=== PATIENT | female | born 1945 | race African-American/Black ===

== ENCOUNTER 2016-11-28 12:38 | Inpatient (IN) | payer OTHER ==
--- NOTE | 2016-11-28 13:05 | PDOC ---
History of Present Illness - General History Source: Patient Exam Limitations: No Limitations - History of Present Illness Initial Comments: 11/28/16 14:10 The patient is a 70-year-old female, with a significant past medical history of diabetes, HTN, hypercholesterolemia, prior CVA, who presents to the ED with right hip/knee pain accompanied by generalized weakness. Pt states that she was scheduled for hip surgery but it was canceled due to poor kidney function. She reports that she got up to use the bathroom this morning at 3:00 AM and was experiencing difficulty ambulating due to weakness and pain in both her right knee and hip. Pt was able to use the bathroom but had to crawl to a phone to call a friend who [place] to come help her. She was able to help the patient onto her couch. Later on pt had to use the bathroom again and had to crawl. Upon arrival to the ED, pt denies any fever, chills, shortness of breath, or chest pain. She states that she is equally weak on both sides and normally ambulates with a walker. She reports having a CT scan of her chest yesterday and her PCP noted that a lump in one of her breasts. She was advised to visit an oncologist to perform a biopsy. PCP: Dr. Marlen Pitts ([facility]) <Jenny Ortiz - Last Filed: 11/28/16 14:10> <Latasha Metcalf - Last Filed: 11/28/16 17:04> - General Stated Complaint: WEAKNESS Time Seen by Provider: 11/28/16 12:41 Past History <Jenny Ortiz - Last Filed: 11/28/16 14:10> - Past Medical History Anemia: No Asthma: No Cancer: No Cardiac Disorders: Yes CVA: Yes (January 2016) COPD: No CHF: Yes Dementia: No Diabetes: Yes GI Disorders: No Disorders: No HTN: Yes Hypercholesterolemia: Yes Liver Disease: No Seizures: No Thyroid Disease: No - Surgical History Abdominal Surgery: Yes (bariatric sx long time ago) Appendectomy: No Cardiac Surgery: No Cholecystectomy: No Lung Surgery: No Neurologic Surgery: No Orthopedic Surgery: No - Immunization History Td Vaccination: Yes Immunization Up to Date: Yes - Psycho/Social/Smoking Cessation Hx Anxiety: No Suicidal Ideation: No Smoking Status: No Smoking History: Former smoker Have you smoked in the past 12 months: No Number of Cigarettes Smoked Daily: 0 If you are a former smoker, when did you quit?: long time ago Hx Alcohol Use: Yes (socially) Drug/Substance Use Hx: No Substance Use Type: Alcohol <Latasha Metcalf - Last Filed: 11/28/16 17:04> - Past Medical History Allergies/Adverse Reactions: Allergies Allergy/AdvReac Type Severity Reaction Status Date / Time No Known Allergies Allergy Verified 10/30/16 15:50 Home Medications: Ambulatory Orders Unobtainable [Unobtainable] 11/28/16 Review of Systems - Review of Systems Able to Perform ROS?: Yes Comments:: 11/28/16 14:10 GENERAL/CONSTITUTIONAL: No fever or chills. (+)generalized weakness HEAD, EYES, EARS, NOSE AND THROAT: No change in vision. No ear pain or discharge. No sore throat. CARDIOVASCULAR: No chest pain or shortness of breath. RESPIRATORY: No cough, wheezing, or hemoptysis. GASTROINTESTINAL: No nausea, vomiting, diarrhea or constipation. GENITOURINARY: No dysuria, frequency, or change in urination. MUSCULOSKELETAL: No joint swelling or pain. No neck or back pain. (+)right hip pain SKIN: No rash NEUROLOGIC: No headache, vertigo, loss of consciousness, or change in strength/ sensation. ENDOCRINE: No increased thirst. No abnormal weight change. HEMATOLOGIC/LYMPHATIC: No anemia, easy bleeding, or history of blood clots. ALLERGIC/IMMUNOLOGIC: No hives or skin allergy. <Jenny Ortiz - Last Filed: 11/28/16 14:10> *Physical Exam - Vital Signs Last Vital Signs Temp Pulse Resp BP Pulse Ox 98.5 F 68 22 124/58 97 11/28/16 13:10 11/28/16 13:10 11/28/16 13:10 11/28/16 13:10 11/28/16 13:10 - Physical Exam Comments: 11/28/16 14:11 GENERAL: Awake, alert, and fully oriented, in no acute distress HEAD: No signs of trauma EYES: PERRLA, EOMI, sclera anicteric, conjunctiva clear ENT: Auricles normal inspection, hearing grossly normal, nares patent, oropharynx clear without exudates. Moist mucosa. NECK: Normal ROM, supple, no lymphadenopathy, JVD, or masses LUNGS: Breath sounds equal, clear to auscultation bilaterally. No wheezes, and no crackles HEART: Regular rate and rhythm, normal S1 and S2, no murmurs, rubs or gallops ABDOMEN: Soft, nontender, normoactive bowel sounds. No guarding, no rebound. No masses. Obese. EXTREMITIES: (+)Right hip tenderness. Left hip is nontender. NEUROLOGICAL: Normal speech. SKIN: Warm, Dry, normal turgor, no rashes or lesions noted <Jenny Ortiz - Last Filed: 11/28/16 14:10> Heart Score/ECG Review #1 ECG reviewed & interpreted by me at: 15:02 General ECG Interpretation: Sinus Rhythm, Normal Rate (71), Normal Intervals, No acute ischemic changes <Latasha Metcalf - Last Filed: 11/28/16 17:04> ED Treatment Course - LABORATORY CBC & Chemistry Diagram: 11/28/16 14:38 11/28/16 14:38 <Latasha Metcalf - Last Filed: 11/28/16 17:04> Medical Decision Making - Medical Decision Making 11/28/16 13:30 Dr. Marlen Pitts was paged and notified via phone service. <Jenny Ortiz - Last Filed: 11/28/16 14:10> - Medical Decision Making 11/28/16 13:04 71 yo f h/o HTN< HLD, DM, prior CVA, lung mass and ckd, also with ho arthritis, scheduled for hip surgery here wtih generalized weakness and worsening hip pain. pt unable to walk due to pain. states last pm was crawling to bathroom because unable to walk due to both pain and weaknesss. hip pain is bilateral, but worse on the right. no new change to speech. no falls. crawled to bathroom then back to living room. was able to call a friend who helped her onto the cough. pt normally walking with walker due to hip pain. no cp no sob. no f/c no urinary complaints. was recently admitted to another hospital and told she had ckd. on exam awake, alert, head atraumatic, facies symmetric. lungs cTAB. no wheeze. heart RRR no mr/g/. abd soft NT nD ext WWP right hip TTP, left hip NT . nuero awake and oriented. moves all extremities. speech clear. differential: worsening pain, pathological fx, electorlyt abnormality, anemia, pt will likley require admission as unable to ambulate, unsafe discharge to home alone. ct head r/o cva. 11/28/16 13:45 <Latasha Metcalf - Last Filed: 11/28/16 17:04> *DC/Admit/Observation/Transfer - Attestations Scribe Attestion: 11/28/16 14:12 Documentation prepared by Jenny Ortiz, acting as back office medical assistant for Latasha Metcalf MD. <Jenny Ortiz - Last Filed: 11/28/16 14:10> - Discharge Dispostion Admit: Yes <Latasha Metcalf - Last Filed: 11/28/16 17:04> Diagnosis at time of Disposition: Arthralgia of hip, Unable to walk
[2016-11-28 14:45] LABS: BASOPHIL 1.4 % (0-2.0); EOSINOPHIL 1.6 % (0-4.5); MCH 27.7 pg (25.7-33.7); MCHC 32.5 g/dl (32.0-36.0); MEAN CELL VOLUME 85.1 fl (80-96); MEAN PLT VOLUME 6.6 fl (7.5-11.1); NEUTROPHILS 70.6 % (42.8-82.8); PLATELET COUNT 284 K/MM3 (134-434); RDW 14.7 % (11.6-15.6); WHITE BLOOD COUNT 7.9 K/mm3 (4.0-10.0)
[2016-11-28 15:21] LABS: ALBUMIN 3.7 g/dl (3.4-5.0); BILIRUBIN,TOTAL 0.6 mg/dL (0.2-1.0); CALCIUM 10.3 mg/dL (8.5-10.1); COCKROFT - GAULT 44.863; CREATININE 1.4 mg/dL (0.55-1.02); TOT PROT 7.2 g/dl (6.4-8.2)
[2016-11-28] MEDS ORDERED: oxyCODONE HCL 5 MG TABLET PO PRN (17:47)
--- NOTE | 2016-11-28 18:10 | HP ---
CHIEF COMPLAINT: PCP: HISTORY OF PRESENT ILLNESS: 71 yo F with significant PMHx of CVA, HTN, HLD, and NIDDM presents s/p fall at home. She lives at home alone. She normally ambulates with walker. She was at home trying to get out of bed to go to bathroom when she grabbed her walker and did not have enough strength to hold herself up. She subsequently fell to floor with no head trauma or loss of consciousness. She then crawled to bathroom and called a neighbor for help. Neighbor called 911 and she was brought to ER. She is complaining of right hip pain,which she describes as 10/10 constant non- radiating pain made worse with movement or palpation not alleviated by anything. Dr. Kramer was supposed to replace hip but found to have KRISTEN on pre-op labs. that why she went to hospital.Denies Fever, chills, or recent illness. SHe was discharge about 2 weeks ago from [facility] for KRISTEN treated with IV hydration. She is being worked up as outpatient for lung nodule and recently referred for chest CT which reveled lung mass suspicious for malignancy and refereed to oncology. ER course was notable for: (1)XRAY hip (-) for fracture. (2)CT head shows no acute bleed. (3)EKG - NSR no st, or t wave abnormalities Recent Travel: Denies PAST MEDICAL HISTORY: PAST SURGICAL HISTORY: Social History: Smoking: Alcohol: Drugs: Family History: Allergies No Known Allergies Allergy (Verified 10/30/16 15:50) HOME MEDICATIONS: Home Medications Medication Instructions Recorded Unobtainable [Unobtainable] 11/28/16 REVIEW OF SYSTEMS CONSTITUTIONAL: Absent: fever, chills, diaphoresis, generalized weakness, malaise, loss of appetite, weight change HEENT: Absent: rhinorrhea, nasal congestion, throat pain, throat swelling, difficulty swallowing, mouth swelling, ear pain, eye pain, visual changes CARDIOVASCULAR: Absent: chest pain, syncope, palpitations, irregular heart rate, lightheadedness , peripheral edema RESPIRATORY: Absent: cough, shortness of breath, dyspnea with exertion, orthopnea, wheezing, stridor, hemoptysis GASTROINTESTINAL: Absent: abdominal pain, abdominal distension, nausea, vomiting, diarrhea, constipation, melena, hematochezia GENITOURINARY: Absent: dysuria, frequency, urgency, hesitancy, hematuria, flank pain, genital pain MUSCULOSKELETAL: (+)joint swelling, back pain, Absent: myalgia, arthralgia, neck pain SKIN: Absent: rash, itching, pallor HEMATOLOGIC/IMMUNOLOGIC: Absent: easy bleeding, easy bruising, lymphadenopathy, frequent infections ENDOCRINE: Absent: unexplained weight gain, unexplained weight loss, heat intolerance, cold intolerance NEUROLOGIC: (+)unsteady gait Absent: headache, focal weakness or paresthesias, dizziness, , seizure, mental status changes, bladder or bowel incontinence PSYCHIATRIC: Absent: anxiety, depression, suicidal or homicidal ideation, hallucinations. PHYSICAL EXAMINATION Vital Signs - 24 hr 11/28/16 13:10 Temperature 98.5 F Pulse Rate 68 Respiratory 22 Rate Blood Pressure 124/58 O2 Sat by Pulse 97 Oximetry (%) GENERAL: AAO x3 , NAD HEAD: NC/AT EYES: PERRLA, EOMI, sclera anicteric, conjunctiva clear. No lid lag. EARS, NOSE, THROAT: Moist mucous membranes. NECK: supple without lymphadenopathy, JVD, or masses. LUNGS: CTAB, No wheezes, and no crackles. No accessory muscle use. HEART: RRR, NO M/G/R ABDOMEN: Soft, NT,ND,BS(+) no guarding, no rebound, no masses. No organomegally MUSCULOSKELETAL: 5/5 strength bilat.upper ext. , tenderness to palpation of right hip. 4/5 strength LLE , 3/5 strength RLE No bony deformities or tenderness. No CVA tenderness. UPPER EXTREMITIES: 2+ pulses, warm, well-perfused. No cyanosis. No clubbing. No peripheral edema. LOWER EXTREMITIES: 2+ pulses, warm, well-perfused. No calf tenderness.1+ pitting edema of bilat LE to level of shins. NEUROLOGICAL: Cranial nerves II-XII intact. Normal speech.gait not observed. 2 + reflexes throughout. PSYCHIATRIC: Cooperative. Good eye contact. Appropriate mood and affect. SKIN: Warm, dry, normal turgor, no rashes or lesions noted, normal capillary refill. Laboratory Results - last 24 hr 11/28/16 11/28/16 14:38 14:38 WBC 7.9 RBC 3.91 Hgb 10.8 Hct 33.3 MCV 85.1 MCHC 32.5 RDW 14.7 Plt Count 284 MPV 6.6 L D Neutrophils % 70.6 D Lymphocytes % 16.9 D Monocytes % 9.5 Eosinophils % 1.6 Basophils % 1.4 Sodium 143 Potassium 4.2 Chloride 108 H Carbon Dioxide 27 Anion Gap 8 BUN 18 D Creatinine 1.4 H Creat Clearance w eGFR 37.07 Random Glucose 110 H D Calcium 10.3 H Total Bilirubin 0.6 AST 23 D ALT 14 Alkaline Phosphatase 158 H D Creatine Kinase 306 H D Creatine Kinase Index 0.7 CK-MB (CK-2) 2.261 Total Protein 7.2 Albumin 3.7 ASSESSMENT/PLAN: 71 yo F with significant PMHx of CVA, HTN, HLD, and NIDDM presents s/p fall at home will be admitted to for inability to ambulate. Problem List - Problem (1) Hip pain Assessment/Plan: * Xray revealed no acute fracture * Pain management * PT eval. (2) HLD (hyperlipidemia) Assessment/Plan: * continue statin (3) Hypertension Assessment/Plan: * Amlodipine Besylate [Norvasc -] 5 mg PO DAILY * Carvedilol 25 mg PO BID (4) DM type 2 (diabetes mellitus, type 2) Assessment/Plan: * ADA diet * ISS ACHS * BGM ACHS (5) DVT prophylaxis Assessment/Plan: * Heparin SQ Visit type - Emergency Visit Emergency Visit: Yes ED Registration Date: 11/28/16 Care time: The patient presented to the Emergency Department on the above date and was hospitalized for further evaluation of their emergent condition. - New Patient This patient is new to me today: No - Critical Care Critical Care patient: No
[2016-11-28] MEDS: SODIUM CHLORIDE 1,000 ML IV SCH (18:43)
[2016-11-28 18:47] LABS: URINE APPEARANCE SLCLOUDY; URINE BILIRUBIN NEGATIVE (NEGATIVE); URINE BLOOD NEGATIVE (NEGATIVE); URINE COLOR LTYELLOW; URINE GLUCOSE (UA) NEGATIVE (NEGATIVE); URINE KETONE NEGATIVE (NEGATIVE); URINE LEUK ESTERASE NEGATIVE (NEGATIVE); URINE NITRITE NEGATIVE (NEGATIVE); URINE UROBILINOGEN NEGATIVE E.U./dl (0.2-1.0)
--- NOTE | 2016-11-28 18:51 | PN ---
Teaching Attending Note Name of Resident: Berlin Jordan ATTENDING PHYSICIAN STATEMENT I saw and evaluated the patient. I reviewed the resident's note and discussed the case with the resident. I agree with the resident's findings and plan as documented. SUBJECTIVE: Patient is c/o having difficulty to stand on her feet , unable to ambulate. Unable to bear weight. OBJECTIVE: Vital Signs Temperature 98.5 F 11/28/16 13:10 Pulse Rate 68 11/28/16 13:10 Respiratory Rate 22 11/28/16 13:10 Blood Pressure 124/58 11/28/16 13:10 O2 Sat by Pulse Oximetry (%) 97 11/28/16 13:10 CBCD WBC 7.9 K/mm3 (4.0-10.0) 11/28/16 14:38 RBC 3.91 M/mm3 (3.60-5.2) 11/28/16 14:38 Hgb 10.8 GM/dL (10.7-15.3) 11/28/16 14:38 Hct 33.3 % (32.4-45.2) 11/28/16 14:38 MCV 85.1 fl (80-96) 11/28/16 14:38 MCHC 32.5 g/dl (32.0-36.0) 11/28/16 14:38 RDW 14.7 % (11.6-15.6) 11/28/16 14:38 Plt Count 284 K/MM3 (134-434) 11/28/16 14:38 MPV 6.6 fl (7.5-11.1) L D 11/28/16 14:38 CMP Sodium 143 mmol/L (136-145) 11/28/16 14:38 Potassium 4.2 mmol/L (3.5-5.1) 11/28/16 14:38 Chloride 108 mmol/L (98-107) H 11/28/16 14:38 Carbon Dioxide 27 mmol/L (21-32) 11/28/16 14:38 Anion Gap 8 (8-16) 11/28/16 14:38 BUN 18 mg/dL (7-18) D 11/28/16 14:38 Creatinine 1.4 mg/dL (0.55-1.02) H 11/28/16 14:38 Creat Clearance w eGFR 37.07 (>60) 11/28/16 14:38 Random Glucose 110 mg/dL (74-106) H D 11/28/16 14:38 Calcium 10.3 mg/dL (8.5-10.1) H 11/28/16 14:38 Total Bilirubin 0.6 mg/dL (0.2-1.0) 11/28/16 14:38 AST 23 U/L (15-37) D 11/28/16 14:38 ALT 14 U/L (12-78) 11/28/16 14:38 Alkaline Phosphatase 158 U/L (45-117) H D 11/28/16 14:38 Total Protein 7.2 g/dl (6.4-8.2) 11/28/16 14:38 Albumin 3.7 g/dl (3.4-5.0) 11/28/16 14:38 CARDIAC ENZYMES Creatine Kinase 306 IU/L (26-192) H D 11/28/16 14:38 Current Medications Generic Name Dose Route Start Last Admin Trade Name Freq PRN Reason Stop Dose Admin Heparin Sodium (Porcine) 5,000 unit 11/28/16 22:00 Heparin - SQ TID HEBERT Sodium Chloride 1,000 mls @ 50 mls/hr 11/28/16 18:00 11/28/16 18:43 Normal Saline - IV 11/29/16 17:52 50 mls/hr ASDIR HEBERT Administration Insulin Aspart 1 vial 11/28/16 22:00 Novolog Vial Sliding Scale - SQ ACHS HEBERT Protocol Oxycodone HCl 5 mg 11/28/16 17:47 Roxicodone - PO Q4H PRN PAIN Home Medications Medication Instructions Recorded Unobtainable [Unobtainable] 11/28/16 PE: as per resident's note ASSESSMENT AND PLAN: 71 yo F with significant PMHx of CVA, HTN, HLD, and NIDDM presents s/p fall at home will be admitted to for inability to ambulate. #Acute Hip pain ;unable to ambulate, unable to bear weight :X ray revealed no acute fracture, pain meds, on oxycodone for pain Physical therapy consult. # HLD (hyperlipidemia) #Hypertension #T2DM sliding scale with coverage DVT px:Heparin sq
[2016-11-28 19:20] LABS: URINE PROTEIN 1+ (NEGATIVE)
[2016-11-28] MEDS ORDERED: SODIUM CHLORIDE 0.45% 1,000 ML IV SCH (20:00)
[2016-11-28 20:41] LABS: URINE MUCUS RARE; URINE RBC <1 /hpf (0-3); URINE WBC 1 /hpf (3-5)
[2016-11-29] MEDS: HEPARIN NA (PORCINE) 5,000 UNITS/ML 1ML VIAL SQ SCH ×4 (00:26→22:09)
[2016-11-29] MEDS: INSULIN SLIDING SCALE (NOVOLOG) 1 VIAL SQ SCH ×5 (01:21→22:10)
[2016-11-29] MEDS ORDERED: amLODIPine BESYLATE 5 MG TABLET (FP) PO ONE ×2 (01:57→01:58)
[2016-11-29 04:46] VITALS: BMI 31.4
[2016-11-29] MEDS: SODIUM CHLORIDE 1,000 ML IV SCH (06:26)
[2016-11-29 08:23] LABS: BASOPHIL 0.8 % (0-2.0); EOSINOPHIL 3.7 % (0-4.5); MCH 27.7 pg (25.7-33.7); MCHC 32.5 g/dl (32.0-36.0); MEAN CELL VOLUME 85.2 fl (80-96); MEAN PLT VOLUME 6.9 fl (7.5-11.1); PLATELET COUNT 280 K/MM3 (134-434); RDW 14.5 % (11.6-15.6); WHITE BLOOD COUNT 7.3 K/mm3 (4.0-10.0)
--- NOTE | 2016-11-29 09:05 | PN ---
Physical Exam: SUBJECTIVE: Patient seen and examined Patient is feeling better with no acute distress, still c/o having pain with difficulty ambulating. OBJECTIVE: Vital Signs Temperature 99.1 F 11/29/16 05:43 Pulse Rate 81 11/29/16 05:43 Respiratory Rate 20 11/29/16 05:43 Blood Pressure 161/81 11/29/16 05:43 O2 Sat by Pulse Oximetry (%) 98 11/28/16 23:30 GENERAL: The patient is awake, alert, and fully oriented, in no acute distress. HEAD: Normal with no signs of trauma. EYES: PERRL, extraocular movements intact, sclera anicteric, conjunctiva clear. No ptosis. ENT: Ears normal, nares patent, oropharynx clear without exudates, moist mucous membranes. NECK: Trachea midline, full range of motion, supple. LUNGS: Breath sounds equal, clear to auscultation bilaterally, no wheezes, no crackles, no accessory muscle use. HEART: Regular rate and rhythm, S1, S2 positive, SEM2/6, no rub or gallop. ABDOMEN: Soft, nontender, nondistended, normoactive bowel sounds, no guarding, no rebound, no hepatosplenomegaly, no masses. EXTREMITIES: 2+ pulses, warm, well-perfused, no edema. decreased ROM of right more than left. NEUROLOGICAL: Cranial nerves II through XII grossly intact. Normal speech, gait not observed. PSYCH: Normal mood, normal affect. SKIN: Warm, dry, normal turgor, no rashes or lesions noted Laboratory Results - last 24 hr 11/28/16 11/29/16 11/29/16 18:28 01:20 06:11 WBC RBC Hgb Hct MCV MCHC RDW Plt Count MPV Neutrophils % Lymphocytes % Monocytes % Eosinophils % Basophils % POC Glucometer 105 112 Urine Color Ltyellow Urine Appearance Slcloudy Urine pH 6.0 Ur Specific [place] 1.015 Urine Protein 1+ H Urine Glucose (UA) Negative Urine Ketones Negative Urine Blood Negative Urine Nitrite Negative Urine Bilirubin Negative Urine Urobilinogen Negative Ur Leukocyte Esterase Negative Urine RBC <1 Urine WBC 1 Ur Epithelial Cells Rare Urine Mucus Rare 11/29/16 07:10 WBC 7.3 RBC 3.76 Hgb 10.4 L Hct 32.0 L MCV 85.2 MCHC 32.5 RDW 14.5 Plt Count 280 MPV 6.9 L Neutrophils % 63.0 Lymphocytes % 24.4 D Monocytes % 8.1 Eosinophils % 3.7 D Basophils % 0.8 POC Glucometer Urine Color Urine Appearance Urine pH Ur Specific [place] Urine Protein Urine Glucose (UA) Urine Ketones Urine Blood Urine Nitrite Urine Bilirubin Urine Urobilinogen Ur Leukocyte Esterase Urine RBC Urine WBC Ur Epithelial Cells Urine Mucus Active Medications Generic Name Dose Route Start Last Admin Trade Name Freq PRN Reason Stop Dose Admin Heparin Sodium (Porcine) 5,000 unit 11/28/16 22:00 11/29/16 06:07 Heparin - SQ Not Given TID HEBERT Sodium Chloride 1,000 mls @ 50 mls/hr 11/28/16 18:00 11/29/16 06:26 Normal Saline - IV 11/29/16 17:52 50 mls/hr ASDIR HEBERT Administration Insulin Aspart 1 vial 11/28/16 22:00 11/29/16 06:11 Novolog Vial Sliding Scale - SQ Not Given ACHS HEBERT Protocol Oxycodone HCl 5 mg 11/28/16 17:47 11/29/16 01:49 Roxicodone - PO 5 mg Q4H PRN Administration PAIN Home Medications Medication Instructions Recorded Unobtainable [Unobtainable] 11/28/16 ASSESSMENT/PLAN: 71 yo F with significant PMHx of CVA, HTN, HLD, and NIDDM presents s/p fall at home will be admitted to for inability to ambulate. #Acute Right Hip pain continues ; unable to ambulate, unable to bear weight : Xray revealed no acute fracture, pain meds, PT eval. on oxycodone for pain continue for now. Ortho consult # HLD (hyperlipidemia) #Hypertension Uncontrolled on Norvasc and Coreg at home continue #T2DM sliding scale with coverage DVT px:Heparin sq Visit type - Emergency Visit Emergency Visit: Yes ED Registration Date: 11/28/16 Care time: The patient presented to the Emergency Department on the above date and was hospitalized for further evaluation of their emergent condition. - New Patient This patient is new to me today: No - Critical Care Critical Care patient: No
[2016-11-29 09:43] LABS: INR 1.16 (0.82-1.09); PROTHROMBIN TIME (PATIENT) 12.8 SEC (9.98-11.88)
[2016-11-29 10:16] LABS: ALBUMIN 3.3 g/dl (3.4-5.0); BILIRUBIN,TOTAL 0.6 mg/dL (0.2-1.0); CALCIUM 9.7 mg/dL (8.5-10.1); COCKROFT - GAULT 56.4995; CREATININE 1.2 mg/dL (0.55-1.02); PHOSPHOROUS 2.3 mg/dL (2.5-4.9); TOT PROT 6.5 g/dl (6.4-8.2)
[2016-11-29] MEDS: traMADol HCL 50 MG TABLET PO SCH ×2 (13:21→19:06)
[2016-11-29] MEDS: amLODIPine BESYLATE 5 MG TABLET (FP) PO SCH (13:22)
[2016-11-29] MEDS: CARVEDILOL 25 MG TABLET (FP) PO SCH ×2 (13:22→22:09)
[2016-11-29] MEDS: GABAPENTIN 100 MG CAPSULE (FP) PO SCH ×2 (13:22→22:09)
[2016-11-29] MEDS ORDERED: PT OWN MED DRAWER 7, Y5N ONE (22:05)
[2016-11-29] MEDS: ASPIRIN/DIPYRIDAMOLE 25 MG/200 MG CAPSULE (FP) PO SCH (22:09)
[2016-11-30] MEDS: traMADol HCL 50 MG TABLET PO SCH ×3 (01:22→12:14)
[2016-11-30] MEDS: HEPARIN NA (PORCINE) 5,000 UNITS/ML 1ML VIAL SQ SCH ×2 (06:43→14:18)
[2016-11-30] MEDS: GABAPENTIN 100 MG CAPSULE (FP) PO SCH ×2 (06:43→14:18)
[2016-11-30] MEDS: INSULIN SLIDING SCALE (NOVOLOG) 1 VIAL SQ SCH ×2 (06:44→12:08)
[2016-11-30] MEDS ORDERED: ATORVASTATIN CA 40 MG TABLET (FP) PO SCH (10:00)
[2016-11-30] MEDS: amLODIPine BESYLATE 5 MG TABLET (FP) PO SCH (10:26)
[2016-11-30] MEDS: CARVEDILOL 25 MG TABLET (FP) PO SCH (10:26)
[2016-11-30] MEDS: ASPIRIN/DIPYRIDAMOLE 25 MG/200 MG CAPSULE (FP) PO SCH (10:26)
--- NOTE | 2016-11-30 12:33 | PN ---
Progress Note (short form) - Note Progress Note: Pt seen and examined. In summary she is a 71 year old female patient, well known to us, who has severe B/L hip OA, and needs B/L staged THR surgeries. She presents with B/L hip pain, nothing else going on orthopedically. PE Unchanged, c/w hip OA Xrays Show severe B/L hip OA Imp/Rec Severe B/L hip OA. NTD acutely F/U with Dr Kramer as an out pt for elective B/L THR surgery
--- NOTE | 2016-11-30 12:45 | DS ---
Physical Exam: SUBJECTIVE: Patient seen and examined Patient is feeling better, seen by Orthopedic . No nausea or vomiting , no fever or chills, no shortness of breath. OBJECTIVE: Vital Signs Temperature 98.1 F 11/30/16 06:00 Pulse Rate 81 11/30/16 06:00 Respiratory Rate 18 11/30/16 06:00 Blood Pressure 159/78 11/30/16 06:00 O2 Sat by Pulse Oximetry (%) 98 11/29/16 21:00 PHYSICAL EXAM GENERAL: The patient is awake, alert, and fully oriented, in no acute distress. HEAD: Normal with no signs of trauma. EYES: PERRL, extraocular movements intact, sclera anicteric, conjunctiva clear. ENT: Ears normal, nares patent, oropharynx clear without exudates, moist mucous membranes. NECK: Trachea midline, full range of motion, supple. LUNGS: Breath sounds equal, clear to auscultation bilaterally, no wheezes, no crackles, no accessory muscle use. HEART: Regular rate and rhythm, S1, S2 without murmur, rub or gallop. ABDOMEN: Soft, nontender, nondistended, normoactive bowel sounds, no guarding, no rebound, no hepatosplenomegaly, no masses. EXTREMITIES: 2+ pulses, warm, well-perfused, no edema. NEUROLOGICAL: Cranial nerves II through XII grossly intact. Normal speech, gait not observed. PSYCH: Normal mood, normal affect. SKIN: Warm, dry, normal turgor, no rashes or lesions noted. LABS Laboratory Results - last 24 hr 11/29/16 11/29/16 11/30/16 18:01 21:37 05:14 POC Glucometer 156 151 110 11/30/16 12:03 POC Glucometer 140 CBCD WBC 7.3 K/mm3 (4.0-10.0) 11/29/16 07:10 RBC 3.76 M/mm3 (3.60-5.2) 11/29/16 07:10 Hgb 10.4 GM/dL (10.7-15.3) L 11/29/16 07:10 Hct 32.0 % (32.4-45.2) L 11/29/16 07:10 MCV 85.2 fl (80-96) 11/29/16 07:10 MCHC 32.5 g/dl (32.0-36.0) 11/29/16 07:10 RDW 14.5 % (11.6-15.6) 11/29/16 07:10 Plt Count 280 K/MM3 (134-434) 11/29/16 07:10 MPV 6.9 fl (7.5-11.1) L 11/29/16 07:10 CMP Sodium 143 mmol/L (136-145) 11/29/16 07:10 Potassium 3.8 mmol/L (3.5-5.1) 11/29/16 07:10 Chloride 109 mmol/L (98-107) H 11/29/16 07:10 Carbon Dioxide 24 mmol/L (21-32) 11/29/16 07:10 Anion Gap 10 (8-16) 11/29/16 07:10 BUN 14 mg/dL (7-18) D 11/29/16 07:10 Creatinine 1.2 mg/dL (0.55-1.02) H 11/29/16 07:10 Creat Clearance w eGFR 44.29 (>60) 11/29/16 07:10 Random Glucose 122 mg/dL (74-106) H 11/29/16 07:10 Calcium 9.7 mg/dL (8.5-10.1) 11/29/16 07:10 Total Bilirubin 0.6 mg/dL (0.2-1.0) 11/29/16 07:10 AST 20 U/L (15-37) 11/29/16 07:10 ALT 14 U/L (12-78) 11/29/16 07:10 Alkaline Phosphatase 146 U/L (45-117) H 11/29/16 07:10 Total Protein 6.5 g/dl (6.4-8.2) 11/29/16 07:10 Albumin 3.3 g/dl (3.4-5.0) L 11/29/16 07:10 CARDIAC ENZYMES Creatine Kinase 306 IU/L (26-192) H D 11/28/16 14:38 Home Medications Medication Instructions Recorded Amlodipine Besylate [Norvasc -] 5 mg PO DAILY 11/29/16 Aspirin/Dipyridamole [Aggrenox -] 1 combo PO BID 11/29/16 Atorvastatin Calcium 40 mg PO DAILY 11/29/16 Carvedilol 25 mg PO BID 11/29/16 Gabapentin 100 mg PO TID 11/29/16 Glimepiride [Glimepiride -] 11/29/16 Tramadol HCl [Ultram] 50 mg PO Q6H 11/29/16 Current Medications Generic Name Dose Route Start Last Admin Trade Name Freq PRN Reason Stop Dose Admin Amlodipine Besylate 5 mg 11/29/16 13:00 11/30/16 10:26 Norvasc - PO 5 mg DAILY HEBERT Administration Atorvastatin Calcium 40 mg 11/30/16 10:00 11/30/16 10:26 Lipitor - PO 40 mg DAILY HEBERT Administration Carvedilol 25 mg 11/29/16 13:00 11/30/16 10:26 Coreg - PO 25 mg BID HEBERT Administration Dipyridamole/Aspirin 1 combo 11/29/16 22:00 11/30/16 10:26 Aggrenox - PO 1 combo BID HEBERT Administration Gabapentin 100 mg 11/29/16 14:00 11/30/16 06:43 Neurontin - PO 100 mg TID HEBERT Administration Heparin Sodium (Porcine) 5,000 unit 11/28/16 22:00 11/30/16 06:43 Heparin - SQ 5,000 unit TID HEBERT Administration Insulin Aspart 1 vial 11/28/16 22:00 11/30/16 12:08 Novolog Vial Sliding Scale - SQ Not Given ACHS [facility] Protocol Oxycodone HCl 5 mg 11/28/16 17:47 11/29/16 01:49 Roxicodone - PO 5 mg Q4H PRN Administration PAIN Tramadol HCl 50 mg 11/29/16 13:00 11/30/16 12:14 Ultram - PO 50 mg Q6HPO HEBERT Administration HOSPITAL COURSE: Date of Admission:11/28/16 Date of Discharge: 11/30/16 71 yo F with significant PMHx of CVA, HTN, HLD, and NIDDM presents s/p fall at home will be admitted to for inability to ambulate. Patient was seen by , cannot be operated until medically clear. Needs BL Hip surgery as per #Acute Right Hip pain better Xray revealed no acute fracture, pain meds. continue at home Ultram. Ortho consult # HLD (hyperlipidemia) #Hypertension Uncontrolled on Norvasc and Coreg at home continue #T2DM sliding scale with coverage Patient will follow up with his PMD and as an outpatient. Minutes to complete discharge: 35 Discharge Summary Reason For Visit: HIP PAIN; UNABLE TO WALK Current Active Problems Cannot walk (Acute) DM type 2 (diabetes mellitus, type 2) (Acute) Hip pain (Acute) Condition: Stable - Instructions Diet, Activity, Other Instructions: Follow up with your primary care doctor within 7 day period. Recheck your blood pressure. Disposition: HOME - Home Medications Comprehensive Discharge Medication List: Ambulatory Orders Amlodipine Besylate [Norvasc -] 5 mg PO DAILY 11/29/16 Aspirin/Dipyridamole [Aggrenox -] 1 combo PO BID 11/29/16 Atorvastatin Calcium 40 mg PO DAILY 11/29/16 Carvedilol 25 mg PO BID 11/29/16 Gabapentin 100 mg PO TID 11/29/16 Glimepiride [Glimepiride -] 11/29/16 Tramadol HCl [Ultram] 50 mg PO Q6H 11/29/16 This patient is new to me today: No Emergency Visit: Yes ED Registration Date: 11/28/16 Care time: The patient presented to the Emergency Department on the above date and was hospitalized for further evaluation of their emergent condition. Critical Care patient: No - Discharge Referral Referred to [facility] No
[2016-11-30 14:19] VITALS: BP 133/70; PULSE 75; TEMP 98.6
--- NOTE | 2016-11-30 22:29 | EKG ---
Test Reason : Blood Pressure : / mmHG Vent. Rate : 071 BPM Atrial Rate : 071 BPM P-R Int : 144 ms QRS Dur : 074 ms QT Int : 400 ms P-R-T Axes : 050 -06 025 degrees QTc Int : 434 ms POOR DATA QUALITY, INTERPRETATION MAY BE ADVERSELY AFFECTED NORMAL SINUS RHYTHM MINIMAL VOLTAGE CRITERIA FOR LVH, MAY BE NORMAL VARIANT BORDERLINE ECG WHEN COMPARED WITH ECG OF 16-JAN-2016 15:30, NO SIGNIFICANT CHANGE WAS FOUND Confirmed by ANAHI RODAS MD ([id number]) on 11/30/2016 10:28:56 PM Referred By: Confirmed By:ANAHI RODAS MD
== END 2016-11-30 15:20 | disposition home or self-care (01) | DRG 556 ==
LOC: JER 12:38 → JERBED 17:04 → J5S 21:54
PROVIDERS: ADMIT Internal Medicine; ATTEND Internal Medicine
DX: M25.551 Pain in right hip (principal); M16.0 Bilateral primary osteoarthritis of hip; E78.00 Pure hypercholesterolemia, unspecified; Z86.73 Personal history of transient ischemic attack (TIA), and cerebral infarction without residual deficits; E11.22 Type 2 diabetes mellitus with diabetic chronic kidney disease; I12.9 Hypertensive chronic kidney disease with stage 1 through stage 4 chronic kidney disease, or unspecified chronic kidney disease; N18.9 Chronic kidney disease, unspecified; Z79.84 Long term (current) use of oral hypoglycemic drugs; Z87.891 Personal history of nicotine dependence
CPT/HCPCS: 36415; 70450-TC; 71010-TC; 72170-TC; 73502-TC-LT; 73502-TC-RT; 76775-TC; 80053; 81003; 81015; 82550; 82553; 83735; 84100; 85025; 85610; 93005; 93010; 99282-25; J1644

== ENCOUNTER 2017-04-17 18:35 | Emergency (ER) | payer OTHER ==
[2017-04-17 19:14] VITALS: BP 119/49; PULSE 62; TEMP 98.8; BMI 30.7
[2017-04-17 21:56] LABS: STOOL FOR OCCULT BLOOD NEGATIVE (NEGATIVE)
[2017-04-17 22:16] LABS: URINE APPEARANCE CLOUDY; URINE BILIRUBIN NEGATIVE (NEGATIVE); URINE BLOOD 3+ (NEGATIVE); URINE COLOR YELLOW; URINE GLUCOSE (UA) NEGATIVE (NEGATIVE); URINE KETONE NEGATIVE (NEGATIVE); URINE NITRITE NEGATIVE (NEGATIVE); URINE UROBILINOGEN NEGATIVE mg/dL (0.2-1.0)
[2017-04-17 22:17] LABS: BASOPHIL 1.1 % (0-2.0); EOSINOPHIL 6.5 % (0-4.5); MCH 27.4 pg (25.7-33.7); MCHC 32.1 g/dl (32.0-36.0); MEAN CELL VOLUME 85.3 fl (80-96); MEAN PLT VOLUME 7.2 fl (7.5-11.1); PLATELET COUNT 301 K/MM3 (134-434); RDW 16.8 % (11.6-15.6); WHITE BLOOD COUNT 7.1 K/mm3 (4.0-10.0)
[2017-04-17 22:25] LABS: URINE PROTEIN 1+ (NEGATIVE)
[2017-04-17 22:27] LABS: CALCIUM OXALATE CRYSTALS RARE /hpf (NONE SEEN); URINE BACTERIA FEW /hpf (NONE SEEN); URINE HYALINE CAST 3 /lpf; URINE MUCUS RARE; URINE RBC 12 /hpf (0-3); URINE WBC 12 /hpf (3-5)
[2017-04-17 22:36] LABS: INR 1.81 (0.82-1.09); PROTHROMBIN TIME (PATIENT) 20.5 SEC (9.98-11.88)
[2017-04-17 22:47] LABS: ALBUMIN 2.4 g/dl (3.4-5.0); ALK PHOS 98 U/L (45-117); ANION GAP 7 (8-16); BILIRUBIN,TOTAL 0.6 mg/dL (0.2-1.0); CALCIUM 8.5 mg/dL (8.5-10.1); CO2 29 mmol/L (21-32); CREATININE 1.4 mg/dL (0.55-1.02); GLUCOSE,RANDOM 108 mg/dL (74-106); SGOT/AST 11 U/L (15-37); SGPT/ALT 13 U/L (12-78)
[2017-04-17 22:48] LABS: TROPONIN I 0.02 ng/ml (0.00-0.05)
--- NOTE | 2017-04-17 23:48 | PDOC ---
History of Present Illness - General Chief Complaint: Blood Transfusion Stated Complaint: BLOOD TRANS Time Seen by Provider: 04/17/17 21:21 - History of Present Illness Initial Comments: 04/17/17 23:43 "The patient is a 72 year old female with past medical history of hypertension, hyperlipidemia, diabetes, and CVA who was sent to the ED from her shelter for low hemoglobin levels today. Per [place] records, pt's Hb was 7.1 today, down from 8.2 previously. In the ED, the patient is asymptomatic. She denies nausea, vomiting, diarrhea, blood per rectum, melena, cough, SOB, CP, lightheadedness, dizziness, or urinary symptoms. Denies h/o GI bleed. Past History - Past Medical History Allergies/Adverse Reactions: Allergies Allergy/AdvReac Type Severity Reaction Status Date / Time No Known Allergies Allergy Verified 10/30/16 15:50 Home Medications: Ambulatory Orders Amiodarone HCl 200 mg PO DAILY 04/17/17 Amlodipine Besylate [Norvasc -] 5 mg PO DAILY 04/17/17 Aspirin/Dipyridamole [Aggrenox -] 1 combo PO ONCE 04/17/17 Atorvastatin Ca [Lipitor] 40 mg PO HS 04/17/17 Carvedilol [Coreg] 25 mg PO DAILY 04/17/17 Ferrous Sulfate 325 mg PO DAILY 04/17/17 Gabapentin [Neurontin] 300 mg PO DAILY 04/17/17 Loperamide HCl [Loperamide] 2 mg PO PRN 04/17/17 Nateglinide [Starlix (Nf)] 120 mg PO TID 04/17/17 Pantoprazole Sodium [Protonix] 40 mg PO DAILY 04/17/17 Phosphorus #1 [Phospha 250 Neutral Tablet] 250 mg PO DAILY 04/17/17 Quetiapine Fumarate [Seroquel -] 25 mg PO HS 04/17/17 Rivaroxaban [Xarelto -] 15 mg PO DAILY 04/17/17 Tramadol HCl 50 mg PO DAILY 04/17/17 Anemia: No Asthma: No Cancer: No Cardiac Disorders: Yes CVA: Yes (January 2016) COPD: No CHF: Yes Dementia: No Diabetes: Yes GI Disorders: No Disorders: No HTN: Yes Hypercholesterolemia: Yes Liver Disease: No Seizures: No Thyroid Disease: No - Surgical History Abdominal Surgery: Yes (bariatric sx long time ago) Appendectomy: No Cardiac Surgery: No Cholecystectomy: No Lung Surgery: No Neurologic Surgery: No Orthopedic Surgery: No - Immunization History Td Vaccination: Yes Immunization Up to Date: Yes - Suicide/Smoking/Psychosocial Hx Smoking Status: No Smoking History: Former smoker Have you smoked in the past 12 months: No Number of Cigarettes Smoked Daily: 0 If you are a former smoker, when did you quit?: long time ago Information on smoking cessation initiated: No Hx Alcohol Use: No Drug/Substance Use Hx: No Substance Use Type: None Review of Systems - Review of Systems Comments:: 04/17/17 23:49 "GENERAL/CONSTITUTIONAL: No fever or chills. No weakness. HEAD, EYES, EARS, NOSE AND THROAT: No change in vision. No ear pain or discharge. No sore throat. CARDIOVASCULAR: No chest pain or shortness of breath. RESPIRATORY: No cough, wheezing, or hemoptysis. GASTROINTESTINAL: No nausea, vomiting, diarrhea or constipation. GENITOURINARY: No dysuria, frequency, or change in urination. MUSCULOSKELETAL: No joint or muscle swelling or pain. No neck or back pain. SKIN: No rash NEUROLOGIC: No headache, vertigo, loss of consciousness, or change in strength/ sensation. ENDOCRINE: No increased thirst. No abnormal weight change. HEMATOLOGIC/LYMPHATIC: No anemia, easy bleeding, or history of blood clots. ALLERGIC/IMMUNOLOGIC: No hives or skin allergy. " *Physical Exam - Vital Signs Last Vital Signs Temp Pulse Resp BP Pulse Ox 98.8 F 62 18 119/49 94 L 04/17/17 19:06 04/17/17 19:06 04/17/17 19:06 04/17/17 19:06 04/17/17 19:06 - Physical Exam Comments: 04/17/17 23:49 "GENERAL: Awake, alert, and fully oriented, in no acute distress HEAD: No signs of trauma EYES: PERRLA, EOMI, sclera anicteric, conjunctiva clear ENT: Auricles normal inspection, hearing grossly normal, nares patent, oropharynx clear without exudates. Moist mucosa NECK: Nontender, no stepoffs, Normal ROM, supple, no lymphadenopathy, JVD, or masses LUNGS: Breath sounds equal, clear to auscultation bilaterally. No wheezes, and no crackles HEART: Regular rate and rhythm, normal S1 and S2, no murmurs, rubs or gallops ABDOMEN: Soft, nontender, normoactive bowel sounds. No guarding, no rebound. No masses RECTAL: Brown stool, no melena, no hematochezia EXTREMITIES: Normal range of motion, no edema. No clubbing or cyanosis. No cords, erythema, or tenderness NEUROLOGICAL: Cranial nerves II through XII intact. 5/5 strength and sensation in all extremities, Normal speech, normal gait SKIN: Warm, Dry, normal turgor, no rashes or lesions noted. " ED Treatment Course - LABORATORY CBC & Chemistry Diagram: 04/17/17 22:03 04/17/17 22:03 - ADDITIONAL ORDERS Additional order review: Laboratory Results 04/17/17 04/17/17 04/17/17 22:03 22:03 22:03 PT with INR 20.50 H INR 1.81 H D PTT (Actin FS) Sodium Potassium Chloride Carbon Dioxide Anion Gap BUN Creatinine Creat Clearance w eGFR Random Glucose Lactic Acid 0.9 Calcium Total Bilirubin AST ALT Alkaline Phosphatase Creatine Kinase 48 Troponin I 0.02 Total Protein Albumin Urine Color Urine Appearance Urine pH Urine Protein Urine Glucose (UA) Urine Ketones Urine Blood Urine Nitrite Urine Bilirubin Urine Urobilinogen Urine RBC Urine WBC Ur Epithelial Cells Calcium Oxalate Crystal Urine Bacteria Hyaline Casts Urine Mucus Stool Occult Blood 04/17/17 04/17/17 04/17/17 22:03 22:03 21:39 PT with INR INR PTT (Actin FS) 32.2 Sodium 143 Potassium 4.2 Chloride 107 Carbon Dioxide 29 Anion Gap 7 L BUN 20 H D Creatinine 1.4 H Creat Clearance w eGFR 36.96 Random Glucose 108 H Lactic Acid Calcium 8.5 Total Bilirubin 0.6 AST 11 L D ALT 13 Alkaline Phosphatase 98 D Creatine Kinase Troponin I Total Protein 6.0 L Albumin 2.4 L D Urine Color Yellow Urine Appearance Cloudy Urine pH 5.0 Urine Protein 1+ H Urine Glucose (UA) Negative Urine Ketones Negative Urine Blood 3+ H Urine Nitrite Negative Urine Bilirubin Negative Urine Urobilinogen Negative Urine RBC 12 Urine WBC 12 Ur Epithelial Cells Rare Calcium Oxalate Crystal Rare Urine Bacteria Few Hyaline Casts 3 Urine Mucus Rare Stool Occult Blood Negative 04/17/17 22:03 RBC 3.23 L MCV 85.3 MCHC 32.1 RDW 16.8 H D MPV 7.2 L Neutrophils % 64.0 Lymphocytes % 15.8 D Monocytes % 12.6 H Eosinophils % 6.5 H D Basophils % 1.1 Medical Decision Making - Medical Decision Making 04/17/17 22:49 72 F sent from [place] for downtrending Hb. Pt with no complaints. - Labs - Stool guaiac 04/17/17 23:50 CBC,CMP WBC 7.1 K/mm3 (4.0-10.0) 04/17/17 22:03 RBC 3.23 M/mm3 (3.60-5.2) L 04/17/17 22:03 Hgb 8.8 GM/dL (10.7-15.3) L D 04/17/17 22:03 Hct 27.5 % (32.4-45.2) L D 04/17/17 22:03 MCV 85.3 fl (80-96) 04/17/17 22:03 MCH 27.4 pg (25.7-33.7) 04/17/17 22:03 MCHC 32.1 g/dl (32.0-36.0) 04/17/17 22:03 RDW 16.8 % (11.6-15.6) H D 04/17/17 22:03 Plt Count 301 K/MM3 (134-434) D 04/17/17 22:03 MPV 7.2 fl (7.5-11.1) L 04/17/17 22:03 Neutrophils % 64.0 % (42.8-82.8) 04/17/17 22:03 Lymphocytes % 15.8 % (8-40) D 04/17/17 22:03 Monocytes % 12.6 % (3.8-10.2) H 04/17/17 22:03 Eosinophils % 6.5 % (0-4.5) H D 04/17/17 22:03 Basophils % 1.1 % (0-2.0) 04/17/17 22:03 Sodium 143 mmol/L (136-145) 04/17/17 22:03 Potassium 4.2 mmol/L (3.5-5.1) 04/17/17 22:03 Chloride 107 mmol/L (98-107) 04/17/17 22:03 Carbon Dioxide 29 mmol/L (21-32) 04/17/17 22:03 Anion Gap 7 (8-16) L 04/17/17 22:03 BUN 20 mg/dL (7-18) H D 04/17/17 22:03 Creatinine 1.4 mg/dL (0.55-1.02) H 04/17/17 22:03 Creat Clearance w eGFR 36.96 (>60) 04/17/17 22:03 Random Glucose 108 mg/dL (74-106) H 04/17/17 22:03 Lactic Acid 0.9 mmol/L (0.4-2.0) 04/17/17 22:03 Calcium 8.5 mg/dL (8.5-10.1) 04/17/17 22:03 Total Bilirubin 0.6 mg/dL (0.2-1.0) 04/17/17 22:03 AST 11 U/L (15-37) L D 04/17/17 22:03 ALT 13 U/L (12-78) 04/17/17 22:03 Alkaline Phosphatase 98 U/L (45-117) D 04/17/17 22:03 Creatine Kinase 48 IU/L (26-192) 04/17/17 22:03 Troponin I 0.02 ng/ml (0.00-0.05) 04/17/17 22:03 Total Protein 6.0 g/dl (6.4-8.2) L 04/17/17 22:03 Albumin 2.4 g/dl (3.4-5.0) L D 04/17/17 22:03 Stool guaiac negative. Pt with Hb 8.8 in ER, significantly higher than Hb 7.1 measured in NH. Likely spurious lab result. Pt with normal vitals. Well appearing, with no evidence of GI bleed. Clinically stable for DC. *DC/Admit/Observation/Transfer Diagnosis at time of Disposition: Abnormal laboratory test result - Discharge Dispostion Disposition: CARE HOME FACILITY Condition at time of disposition: Good Admit: No - Patient Instructions Additional Instructions: Your hemoglobin in the ER was 8.8. This is at your baseline. Your earlier lab tests today may have been spurious. You should have them repeated tomorrow to make sure it remains in your normal range. If you experience any lightheadedness, chest pain, shortness of breath, blood in your stool, or any other concerning symptoms, return to the ER immediately. - Attestations Physician Attestion: 04/18/17 00:52 I, Dr. Greg Farrell MD, attest that this document has been prepared under my direction and personally reviewed by me in its entirety. I further attest, that it accurately reflects all work, treatment, procedures and medical decision -making performed by me.
[2017-04-18 11:54] LABS: URINE LEUK ESTERASE TRACE (NEGATIVE)
== END 2017-04-18 01:53 | disposition home or self-care (01) ==
LOC: JER 18:35
DX: D58.2 Other hemoglobinopathies (principal); I10 Essential (primary) hypertension; E11.9 Type 2 diabetes mellitus without complications; E78.00 Pure hypercholesterolemia, unspecified; Z86.73 Personal history of transient ischemic attack (TIA), and cerebral infarction without residual deficits
CPT/HCPCS: 36415; 80053; 81003; 81015; 82272; 82550; 83605; 84484; 85025; 85610; 85730; 86850; 86900; 86901; 99282-25

== ENCOUNTER 2018-01-19 07:42 | Inpatient (IN) | payer OTHER ==
[2018-01-12 11:06] VITALS: BMI 30.6
--- NOTE | 2018-01-19 07:53 | HP ---
Satellite PMH - Chief Complaint Chief Complaint: right hip pain - Past Medical History Allergies/Adverse Reactions: Allergies Allergy/AdvReac Type Severity Reaction Status Date / Time No Known Drug Allergies Allergy Verified 01/12/18 09:06 Cardiovascular: Yes: HTN, Hyperlipdemia - Current Medications Current Medications: Home Medications Medication Instructions Recorded Amlodipine Besylate [Norvasc -] 10 mg PO DAILY 04/17/17 Aspirin/Dipyridamole [Aggrenox -] 1 combo PO BID 04/17/17 Gabapentin [Neurontin] 100 mg PO BID 04/17/17 Loperamide HCl [Loperamide] 2 mg PO PRN PRN 04/17/17 Nateglinide [Starlix (Nf)] 60 mg PO TID 04/17/17 Tramadol HCl 50 mg PO Q6H PRN 04/17/17 Acetaminophen [Tylenol] 650 mg PO Q6H PRN 01/12/18 Ammonium Lactate Lotion 1 applic TP ASDIR 01/12/18 [Lac-Hydrin 12% Lotion -] Docusate Sodium [Colace] 100 mg PO DAILY 01/12/18 Ferrous Gluconate [Fergon -] 324 mg PO TID 01/12/18 Lisinopril 20 mg PO DAILY 01/12/18 Melatonin 3 mg PO HS 01/12/18 Multivitamins [Tab-A-Vit -] 1 tab PO DAILY 01/12/18 Polyvinyl Alcohol [Artificial 1 drop OU BID 01/12/18 Tears] Satellite Physical Exam - Physical Examination General Appearance: Well Nourished, Well Developed, Alert & Oriented x3 ENT: Clear Lung: Normal air movement Heart: Regular rate & rhythm Extremities: Other (right hip- + ttp, decr rom, nvi xrays show grade 4 hip djd) Neurological: Intact, Alert, Oriented Satellite Impression/Plan - Impression/Plan Impression: right hip djd Operative Procedure: right ginger thr Date to be Performed: 01/19/18
[2018-01-19] MEDS ORDERED: CELECOXIB 200 MG CAPSULE PO ONE (08:07)
[2018-01-19] MEDS ORDERED: CEFAZOLIN 1 GM/D5W 1 GRAM/50 ML BAG IVPB ONE (08:07)
[2018-01-19] MEDS ORDERED: GABAPENTIN 300 MG CAPSULE (FP) PO ONE (08:07)
[2018-01-19] MEDS ORDERED: TRANEXAMIC ACID 1000 MG/10 ML VIAL IVPUSH ONE (08:07)
[2018-01-19] MEDS ORDERED: BUPIVACAINE HCL/PF (5 MG/ML) 30 ML VIAL IJ ONE (09:44)
[2018-01-19] MEDS ORDERED: EPINEPHrine/PF 1 MG/1 ML (1:1,000) AMPULE ONE (09:44)
[2018-01-19] MEDS ORDERED: DEXAMETHASONE SOD PHOSPHATE/PF 10 MG/ML SDV ONE (09:44)
[2018-01-19] MEDS ORDERED: LIDOCAINE 1% P/F 10 MG/ML VIAL ONE (09:47)
[2018-01-19] MEDS ORDERED: MIDAZOLAM HCL 2 MG/2 ML SINGLE DOSE VIAL ONE (09:47)
[2018-01-19] MEDS ORDERED: ceFAZolin SODIUM 1 GM VIAL ONE (10:16)
[2018-01-19] MEDS ORDERED: VANCOMYCIN 1,000 MG VIAL (RESTRICTED TO ID ONLY) ONE (10:17)
[2018-01-19] MEDS ORDERED: ONDANSETRON 4 MG/2 ML VIAL ONE (11:12)
[2018-01-19] MEDS ORDERED: DEXAMETHASONE SOD PHOSPHATE 4 MG/1 ML VIAL ONE (11:12)
[2018-01-19] MEDS ORDERED: TRANEXAMIC ACID 1000 MG/10 ML VIAL ONE (11:12)
[2018-01-19] MEDS ORDERED: PROPOFOL 20 ML ONE (11:49)
[2018-01-19] MEDS ORDERED: VANCOMYCIN 1,000 MG VIAL (RESTRICTED TO ID ONLY) IVPB ONE (12:09)
[2018-01-19] MEDS ORDERED: LOPERAMIDE HCL 2 MG CAPSULE PO PRN (12:27)
[2018-01-19] MEDS ORDERED: MAG HYDROX/AL HYDROX/SIMETH 30 ML UNIT-DOSE CUP PO PRN (12:29)
[2018-01-19] MEDS ORDERED: ONDANSETRON 4 MG/2 ML VIAL IVPUSH PRN (12:29)
[2018-01-19] MEDS ORDERED: LACTATED RINGERS SOLUTION 1,000 ML IV SCH (12:30)
--- NOTE | 2018-01-19 12:32 | OP ---
Operative Note - Note: Operative Date: 01/19/18 (araceli) Pre-Operative Diagnosis: right hip djd Operation: right ginger thr Post-Operative Diagnosis: Same as Pre-op Surgeon: Ant Kramer [employer] Consultant: Obi Osman Anesthesiologist/STORAGE WHARFAGE CLERK: Brook Webb Anesthesia: Spinal, Local Specimens Removed: femoral head Estimated Blood Loss (mls): 150 Operative Report Dictated: Yes
[2018-01-19] MEDS ORDERED: ACETAMINOPHEN 325 MG TABLET (FP) ONE (13:48)
[2018-01-19] MEDS ORDERED: NATEGLINIDE 60 MG PO SCH (14:00)
[2018-01-19] MEDS ORDERED: ACETAMINOPHEN 325 MG TABLET (FP) PO SCH (15:00)
[2018-01-19] MEDS: INSULIN SLIDING SCALE (NOVOLOG) 1 VIAL SQ SCH ×2 (16:46→22:08)
[2018-01-19] MEDS: FERROUS GLUCONATE 324 MG TAB (FP) PO SCH (16:46)
[2018-01-19] MEDS: CEFAZOLIN 1 GM/D5W 1 GRAM/50 ML BAG IVPB SCH (18:12)
[2018-01-19] MEDS: ACETAMINOPHEN 325 MG TABLET (FP) PO SCH (18:42)
--- NOTE | 2018-01-19 19:16 | SPEC ---
DATE OF OPERATION: 01/19/2018 PREOPERATIVE DIAGNOSIS: Degenerative joint disease right hip. POSTOPERATIVE DIAGNOSIS: Degenerative joint disease right hip. PROCEDURE PERFORMED: Right total hip replacement with robotic-assisted navigation (MAKOplasty). SURGICAL ATTENDING: Ant Kramer MD INSPECTOR ELEVATORS: REILLY Ibarra ANESTHESIA: Regional and spinal. CLOSURE: A Trident 2 Press-Fit 52 mm acetabulum with a standard 36 mm head and a number 5 Accolade 2 femoral stem. Number 1 Vicryl for fascia, 0 and 2-0 subcutaneous, 3-0 Monocryl subcuticular for skin with skin glue, 4-0 undyed Vicryl for pin sites. ESTIMATED BLOOD LOSS: Less than 100 mL. COMPLICATIONS: None. CONDITION: To the recovery room in stable condition. DESCRIPTION OF PROCEDURE: The patient was taken to the operating room on April 28, 2017. General and regional anesthesia was administered by the anesthesiologist. IV Kefzol and TXA were administered prophylactically prior to the case. The patient was placed in the lateral decubitus position will all prominences well-padded. The right hip area was prepped and draped in the usual sterile fashion. Using 3 small stab incisions over the iliac crest, 3 threaded pins were drilled in power fashion through the 2 tables of the crest. These pins were fastened and the navigation array for the Ralph navigation system. Next, a 12 to 15-cm curved longitudinal incision over the posterolateral aspect of the greater trochanter was incised. Hemostasis was achieved with Bovie cautery. Sharp dissection was carried down to level of the fascia. The fascia was opened the entire length of the incision, spreading the fibers of the gluteus shani in the direction of origin. A Charnley retractor was placed in this layer. Care was taken not to impale the sciatic nerve. The short external rotators were detached off the insertion of the greater trochanter and peeled off the capsule. A posterior capsulotomy was then performed. A check point was malleted into the greater trochanter and a point on the inferior pole of the patella was obtained as well. These 2 points were used to assess the preoperative offset and limb lengths of the hip. The hip was then dislocated. The femoral neck was then osteotomized down to the appropriate level as directed by the navigation device. Anterior and posterior retractors were placed, exposing the acetabulum. A circumferential labral excision was performed. A check point was malleted into the acetabulum as well. Multiple sites inside the acetabulum and around the rim were utilized to register the acetabulum with the navigation device. An excellent registration of less than 0.5 mm was obtained. The hip was then reamed with the appropriate reamer down to the appropriate depth, with the appropriate orientation and version as assessed on our preoperative plan for this patient. The reamer was removed and the acetabulum was inspected to have good bleeding surfaces throughout. The real acetabular cup was then malleted down into place, with the holes in the appropriate position, until an excellent fixation was obtained. No screws were necessary. The navigation device ensured appropriate orientation and version, with the depth as predetermined. The appropriate liner was then clipped into place. Attention was directed to the femur. The proximal femur was prepared by use a box chisel, a canal finder and serial broaches until the broach achieved excellent rigidity in the proximal femur with the appropriate version being applied. A calcar planer was used to smooth off the calcar flush with the trial components. A trial reduction with the appropriate head was done, and the hip was reduced. The hip was taken through a range of motion from full extension with external rotation to marked flexion, and was stable at 90 degrees of flexion. It was stable to marked abduction and internal rotation, with a positive hang test and negative telescoping. Limb lengths were ascertained visually as well as with the navigation device to be within the targeted range for this patient. The trial component was removed. The real component was then malleted into place. The head was cold welded to the trunnion, and the hip was reduced. Range of motion, stability and limb lengths were as described in the trial component. Then the hip was pulse antibiotic irrigated. Vancomycin powder was placed in the hip joint. The capsule was closed. The fascia was then closed as well using number 1 Vicryl interrupted suture, 0 and 2-0 subcutaneous, and 3-0 V-Loc for the skin. 4-0 undyed Vicryl was used to close the pin sites after the pins were removed. All check points were also removed. Sterile Aquacel dressing was applied. The patient was awakened from anesthesia and transferred into the supine position. Bilateral SCDs and an abduction pillow were placed. X-rays revealed excellent position of the components. The patient was transferred to the recovery room in stable condition, with no complications. Estimated blood loss was less than 100 mL. Unique COLE/[id number]
[2018-01-19] MEDS: oxyCODONE HCL 5 MG TABLET PO PRN (20:40)
[2018-01-19] MEDS: AMMONIUM LACTATE 12% LOTION 225 GM BOTTLE TP SCH (22:00)
[2018-01-19] MEDS: GABAPENTIN 100 MG CAPSULE (FP) PO SCH (22:01)
[2018-01-19] MEDS: ARTIFICIAL TEARS (POLYVINYL ALCOHOL 1.4%) OPTH DROPS OU SCH ×2 (22:01→23:00)
[2018-01-20] MEDS: ACETAMINOPHEN 325 MG TABLET (FP) PO SCH ×4 (03:06→18:52)
[2018-01-20] MEDS: CEFAZOLIN 1 GM/D5W 1 GRAM/50 ML BAG IVPB SCH (03:08)
[2018-01-20] MEDS: oxyCODONE HCL 5 MG TABLET PO PRN ×3 (04:44→23:53)
[2018-01-20] MEDS ORDERED: PT OWN MED DRAWER 7, Y5N ONE ×4 (05:04→21:30)
[2018-01-20] MEDS: INSULIN SLIDING SCALE (NOVOLOG) 1 VIAL SQ SCH ×4 (06:43→21:41)
[2018-01-20 08:14] LABS: HEMATOCRIT 29.9 % (32.4-45.2); HEMOGLOBIN 9.5 GM/dl (10.7-15.3); MCH 27.9 pg (25.7-33.7); MCHC 31.9 g/dl (32.0-36.0); MEAN CELL VOLUME 87.5 fl (80-96); PLATELET COUNT 240 K/MM3 (134-434); RBC 3.42 M/mm3 (3.60-5.2); WHITE BLOOD COUNT 9.6 K/mm3 (4.0-10.8)
[2018-01-20] MEDS: FERROUS GLUCONATE 324 MG TAB (FP) PO SCH ×3 (08:42→17:41)
--- NOTE | 2018-01-20 09:30 | PN ---
Progress Note (short form) - Note Progress Note: Ortho Pt seen and examined s/p right ginger thr pod #1 Selected Entries 01/20/18 06:00 Temperature 98.7 F Pulse Rate 75 Respiratory 18 Rate Blood Pressure 144/60 Laboratory Tests 01/20/18 07:10 WBC 9.6 Hgb 9.5 L Hct 29.9 L Plt Count 240 dressing c/d/i, calf soft, nt nvi a/p PT hip precautions dvt ppx pain control d/c planning to rehab
[2018-01-20] MEDS: ASPIRIN/DIPYRIDAMOLE 25 MG/200 MG CAPSULE (FP) PO SCH ×2 (10:13→21:30)
[2018-01-20] MEDS: DOCUSATE SODIUM 100 MG CAPSULE (FP) PO SCH (10:14)
[2018-01-20] MEDS: amLODIPine BESYLATE 10 MG TABLET (FP) PO SCH (10:14)
[2018-01-20] MEDS: LISINOPRIL 20 MG TABLET (FP) PO SCH (10:14)
[2018-01-20] MEDS: ARTIFICIAL TEARS (POLYVINYL ALCOHOL 1.4%) OPTH DROPS OU SCH ×2 (10:14→21:28)
[2018-01-20] MEDS: PANTOPRAZOLE 40 MG TABLET (FP) PO SCH (10:14)
[2018-01-20] MEDS: GABAPENTIN 100 MG CAPSULE (FP) PO SCH ×2 (10:14→21:26)
[2018-01-20] MEDS: MULTIVITAMINS (DAILY MVI) TABLET (FP) PO SCH (10:14)
[2018-01-20] MEDS ORDERED: INSULIN (NOVOLOG) ASPART 100 UNITS/ML 10ML VIAL ONE ×2 (12:21→17:28)
[2018-01-20] MEDS: AMMONIUM LACTATE 12% LOTION 225 GM BOTTLE TP SCH (12:26)
--- NOTE | 2018-01-20 12:47 | PN ---
Progress Note (short form) - Note Progress Note: 72 F POD1 s/p R THR under spinal anesthetic with peripheral nerve blocks. Pt states that pain is well controlled and reports no anesthetic complications. AVSS. Motor and sensory function intact in bilateral lower extremities. Continue current regimen.
[2018-01-21] MEDS: ACETAMINOPHEN 325 MG TABLET (FP) PO SCH ×2 (01:30→06:56)
[2018-01-21] MEDS: INSULIN SLIDING SCALE (NOVOLOG) 1 VIAL SQ SCH ×2 (06:56→11:48)
[2018-01-21] MEDS: oxyCODONE HCL 5 MG TABLET PO PRN ×2 (06:58→10:03)
--- NOTE | 2018-01-21 08:12 | PN ---
Progress Note (short form) - Note Progress Note: Ortho Pt seen and examined s/p right ginger thr pod #2 Selected Entries 01/21/18 06:39 Temperature 99.5 F Pulse Rate 73 Respiratory 18 Rate Blood Pressure 161/54 Laboratory Tests 01/21/18 07:20 WBC Pending Hgb Pending Hct Pending Plt Count Pending dressing c/d/i, calf soft, nt nvi a/p PT hip precautions dvt ppx pain control d/c planning to rehab
--- NOTE | 2018-01-21 08:15 | DS ---
Physical Examination Vital Signs: Vital Signs Temperature 99.5 F 01/21/18 06:39 Pulse Rate 73 01/21/18 06:39 Respiratory Rate 18 01/21/18 06:39 Blood Pressure 161/54 01/21/18 06:39 O2 Sat by Pulse Oximetry (%) 99 01/21/18 06:39 Discharge Summary Reason For Visit: OSTEOARTHRITIS Procedures: Principal: right thr Hospital Course: admitted for elective right ginger thr, uneventful post-op, stable for d/c Condition: Good - Instructions Diet, Activity, Other Instructions: Post-op Instructions-Total Hip Replacement Call the office for a follow-up appointment in 1 week - [phone] Apply Graduated Compression Stockings (TEDs) to both lower extremities- remove daily for hygiene ONLY Apply Sequential Compression Device (SCDs) to both Lower extremities remove for PT and hygiene ONLY Apply cold packs to affected area for 15 minutes every 2 hours. Physical Therapist will come to your home for the first 5 days. You will be set up with outpatient PT at your first post-operative visit. Patient may ambulate as tolerated-encourage self care (at least every 2-3 hours while awake) with walker or cane Maintain Aquacel (waterproof) dressing to operative wound (will be removed by surgeon at first office visit) Shower with Aquacel dressing in place-if Aquacel integrity compromised, remove and apply dry sterile dressing and notify Orthopedist. DO NOT SHOWER unless Orthopedists approves without Aquacel dressing CONTACT THE OFFICE FOR ANY CHANGE IN YOUR CONDITION (for example-fever greater than 102 degrees, excessive bleeding from operative site, purulent drainage, severe swelling or pain) GO TO THE EMERGENCY ROOM IF THERE IS A MEDICAL EMERGENCY Hip Precautions: * Keep a rolled towel under affected heel while in bed or chair (to keep knee in extension) * Dependent upon approach: * Posterior - do not cross legs; do not sit on low chairs or toilets. * If you have any questions, please do not hesitate to call the office - . Referrals: Ant Kramer MD [Staff Physician] - Disposition: VNS/HOME HEALTH CARE - Home Medications Comprehensive Discharge Medication List: Ambulatory Orders Amlodipine Besylate [Norvasc -] 10 mg PO DAILY 04/17/17 Aspirin/Dipyridamole [Aggrenox -] 1 combo PO BID 04/17/17 Gabapentin [Neurontin] 100 mg PO BID 04/17/17 Loperamide HCl [Loperamide] 2 mg PO PRN PRN 04/17/17 Nateglinide [Starlix (Nf) -] 60 mg PO TID 04/17/17 Tramadol HCl 50 mg PO Q6H PRN 04/17/17 Acetaminophen [Tylenol] 650 mg PO Q6H PRN 01/12/18 Ammonium Lactate Lotion [Lac-Hydrin 12] 1 applic TP ASDIR 01/12/18 Docusate Sodium [Colace] 100 mg PO DAILY 01/12/18 Ferrous Gluconate [Fergon -] 324 mg PO TID 01/12/18 Lisinopril 20 mg PO DAILY 01/12/18 Melatonin 3 mg PO HS 01/12/18 Multivitamins [Multivit ([facility] Formulary)] 1 tab PO DAILY 01/12/18 Polyvinyl Alcohol [Artificial Tears] 1 drop OU BID 01/12/18
[2018-01-21 09:03] LABS: HEMATOCRIT 28.4 % (32.4-45.2); MCH 27.8 pg (25.7-33.7); MCHC 31.9 g/dl (32.0-36.0); MEAN CELL VOLUME 87.2 fl (80-96); MEAN PLT VOLUME 7.1 fl (7.5-11.1); PLATELET COUNT 229 K/MM3 (134-434); RBC 3.25 M/mm3 (3.60-5.2); RDW 13.9 % (11.6-15.6); WHITE BLOOD COUNT 9.1 K/mm3 (4.0-10.8)
[2018-01-21] MEDS ORDERED: PT OWN MED DRAWER 7, Y5N ONE (09:23)
[2018-01-21 10:00] VITALS: BP 145/50; PULSE 82; TEMP 98.6
[2018-01-21] MEDS: GABAPENTIN 100 MG CAPSULE (FP) PO SCH (10:00)
[2018-01-21] MEDS: PANTOPRAZOLE 40 MG TABLET (FP) PO SCH (10:01)
[2018-01-21] MEDS: FERROUS GLUCONATE 324 MG TAB (FP) PO SCH (10:01)
[2018-01-21] MEDS: AMMONIUM LACTATE 12% LOTION 225 GM BOTTLE TP SCH (10:01)
[2018-01-21] MEDS: MULTIVITAMINS (DAILY MVI) TABLET (FP) PO SCH (10:01)
[2018-01-21] MEDS: ASPIRIN/DIPYRIDAMOLE 25 MG/200 MG CAPSULE (FP) PO SCH (10:02)
[2018-01-21] MEDS: ARTIFICIAL TEARS (POLYVINYL ALCOHOL 1.4%) OPTH DROPS OU SCH (10:02)
[2018-01-21] MEDS: DOCUSATE SODIUM 100 MG CAPSULE (FP) PO SCH (10:02)
[2018-01-21] MEDS: LISINOPRIL 20 MG TABLET (FP) PO SCH (10:02)
[2018-01-21] MEDS: amLODIPine BESYLATE 10 MG TABLET (FP) PO SCH (10:03)
--- NOTE | 2018-01-21 13:01 | PATH ---
Surgical Pathology Report Patient Name: KELLY IBARRA Med. Rec. #: [id number] /Age/Gender: 1945 (Age: 72) / F Account: [id number] Location: [facility] MED-SURG Taken: 01/19/2018 Received: 01/19/2018 Reported: 01/21/2018 Physicians: Ant Kramer M.D. Specimen(s) Received RIGHT FEMORAL HEAD Clinical History Osteoarthritis right hip Final Diagnosis FEMORAL HEAD, RIGHT, TOTAL HIP REPLACEMENT: DEGENERATIVE JOINT DISEASE. Electronically Signed Gale Campos M.D. Gross Description Received in formalin, labeled "right femoral head," is a 4.7 x 4.7 x 4.0 cm. femoral head with a 1 cm in length portion of femoral neck attached. The margin of resection is smooth. There is a 2.5 cm greatest dimension area of eburnation present. The remaining articular surface is haque-yellow and diffusely granular and nodular. The underlying trabecular bone is yellow and hard. A shared services representative section is submitted in one cassette, following decalcification. 01/20/[address] [facility]01/20/2018
== END 2018-01-21 11:50 | disposition home health service (06) | DRG 470 ==
LOC: FM/S 07:42
PROVIDERS: ADMIT Orthopaedic Surgery; ATTEND Orthopaedic Surgery
PROC: 8E0W0CZ Robotic Assisted Procedure of Trunk Region, Open Approach (ICD-10-PCS; 2018-01-19)
PROC: 0SR90JA Replacement of Right Hip Joint with Synthetic Substitute, Uncemented, Open Approach (ICD-10-PCS; principal; 2018-01-19 11:00)
DX: M16.11 Unilateral primary osteoarthritis, right hip (principal); I10 Essential (primary) hypertension; E78.5 Hyperlipidemia, unspecified
CPT/HCPCS: 36415; 73502-TC-RT; 82962; 85027; 88304-TC; 88311-TC; 97116-GP; 97162-GP

== ENCOUNTER 2019-09-07 06:02 | Day surgery (SDC) | payer OTHER ==
[2019-09-05 14:21] VITALS: BMI 32.8
[~2019-09-07 06:02] MED LIST: ACETAMINOPHEN 325 MG TABLET (FP) PO PRN; CYCLOPENTOLATE HCL 1% OPHTH SOLN 2 ML BOTTLE OP SCH; KETOROLAC TROMETHAMINE 0.5% EYE DROP 1 DROP DROPS OP SCH; OFLOXACIN 0.3% OPHTHALMIC SOLUTION 5 ML BOTTLE OP SCH; PHENYLEPHRINE 2.5% OPHTH SOLN 15 ML BOTTLE OP SCH; TROPICAMIDE 1% OPHTH SOLN 15 ML BOTTLE OP SCH
[2019-09-07] MEDS ORDERED: PHENYLEPHRINE 2.5% OPHTH SOLN 15 ML BOTTLE ONE (06:22)
[2019-09-07] MEDS ORDERED: TROPICAMIDE 1% OPHTH SOLN 15 ML BOTTLE ONE (06:22)
[2019-09-07] MEDS ORDERED: KETOROLAC TROMETHAMINE 0.5% EYE DROP 1 DROP DROPS ONE (06:22)
[2019-09-07] MEDS ORDERED: CYCLOPENTOLATE HCL 1% OPHTH SOLN 2 ML BOTTLE ONE (06:22)
[2019-09-07] MEDS ORDERED: OFLOXACIN 0.3% OPHTHALMIC SOLUTION 5 ML BOTTLE ONE (06:22)
[2019-09-07] MEDS ORDERED: OFLOXACIN 0.3% OPHTHALMIC SOLUTION 5 ML BOTTLE OS ONE ×3 (06:45→07:05)
[2019-09-07] MEDS ORDERED: TROPICAMIDE 1% OPHTH SOLN 15 ML BOTTLE OS ONE ×3 (06:45→07:05)
[2019-09-07] MEDS ORDERED: PHENYLEPHRINE 2.5% OPHTH SOLN 15 ML BOTTLE OS ONE ×3 (06:45→07:05)
[2019-09-07] MEDS ORDERED: KETOROLAC TROMETHAMINE 0.5% EYE DROP 1 DROP DROPS OS ONE ×3 (06:45→07:05)
[2019-09-07] MEDS ORDERED: CYCLOPENTOLATE HCL 1% OPHTH SOLN 2 ML BOTTLE OS ONE ×3 (06:45→07:05)
[2019-09-07] MEDS ORDERED: CHONDROITIN SU A/HYALUR SOD 1 KIT ONE (07:06)
[2019-09-07] MEDS ORDERED: MIDAZOLAM HCL 2 MG/2 ML SINGLE DOSE VIAL ONE (07:17)
[2019-09-07] MEDS ORDERED: EPINEPHrine/PF 1 MG/1 ML (1:1,000) AMPULE ONE (07:22)
[2019-09-07] MEDS ORDERED: VANCOMYCIN 500 MG VIAL (RESTRICTED TO ID ONLY) ONE (07:22)
[2019-09-07] MEDS ORDERED: LIDOCAINE HCL/PF 1% SDV 5ML VIAL ONE (07:22)
[2019-09-07] MEDS ORDERED: BSS (NA/CA/MG/K) BALANCED SALT SOLUTION OPHTH SOLN 15 ML BOTTLE ONE (07:23)
[2019-09-07] MEDS ORDERED: POVIDONE-IODINE 5% OPHTHALMIC PREP 30 ML SOLUTION ONE (07:23)
[2019-09-07] MEDS ORDERED: WATER FOR INJ,STERILE 10 ML ONE (07:23)
[2019-09-07] MEDS ORDERED: TETRACAINE 0.5% OPHTH SOLN 2 ML BOTTLE ONE (07:23)
[2019-09-07] MEDS ORDERED: TETRACAINE 0.5% OPHTH SOLN 2 ML BOTTLE OS ONE (08:03)
[2019-09-07] MEDS ORDERED: POVIDONE-IODINE 5% OPHTHALMIC PREP 30 ML SOLUTION OS ONE (08:04)
[2019-09-07] MEDS ORDERED: LIDOCAINE HCL 1% PRESERVATIVE FREE - 30ML VIAL NR ONE ×2 (08:13)
[2019-09-07] MEDS ORDERED: LIDOCAINE HCL 1% PRESERVATIVE FREE - 30ML VIAL IO ONE (08:13)
[2019-09-07] MEDS ORDERED: BSS (NA/CA/MG/K) BALANCED SALT SOLUTION OPHTH SOLN 15 ML BOTTLE OS ONE (08:14)
[2019-09-07] MEDS ORDERED: EPINEPHrine/PF 1 MG/1 ML (1:1,000) AMPULE SQ ONE (08:21)
[2019-09-07] MEDS ORDERED: CHONDROITIN SU A/HYALUR SOD 1 KIT IO ONE (08:23)
[2019-09-07 09:48] VITALS: BP 151/74; PULSE 93; TEMP 98.5
--- NOTE | 2019-09-07 14:22 | SPEC ---
DATE OF OPERATION: DATE OF DICTATION: 09/07/2019 OPERATION: Phacoemulsification of left cataract with posterior chamber intraocular lens implantation. Lens used [id number], 19.5 diopter power, serial No. [id number]. PREOPERATIVE DIAGNOSIS: Cataract, left eye. POSTOPERATIVE DIAGNOSIS: Cataract, left eye. SURGEON: Guerrero Donovan M.D. ANESTHESIA: Topical MAC. COMPLICATIONS: None. PROCEDURE: The patient was brought to the operating room and correctly identified along with the operative site and the correct intraocular lens power. The patient was then prepped and draped in the usual sterile fashion including 5% Betadine solution in the conjunctival sac and an eyelid drape. An eyelid speculum was then placed in the eye. A paracentesis port was created and approximately 0.5 mL of preservative-free lidocaine was then injected into the eye. Viscoelastic was then injected to inflate the anterior chamber. A temporal clear corneal wound was created. A continuous circular capsulorrhexis was performed. The nucleus was then hydrodissected with BSS and removed with phacoemulsification. The remaining cortical material was irrigated and aspirated. Viscoelastic was injected to inflate the capsular bag and the intraocular lens was then implanted into the capsular bag. The remaining Viscoelastic was irrigated and aspirated from the eye. The IOL was noted to be well centered and completely covered by the anterior capsulorrhexis. Topical vancomycin was placed and the eye patched and shielded. All wounds were tested and found to be watertight. No suture was placed. The eye was then shielded. The patient was then discharged from the operating room in stable condition. GUERRERO DONOVAN M.D. [id number]
== END 2019-09-07 09:36 | disposition home or self-care (01) ==
LOC: JASU-SURG 06:02
PROVIDERS: ATTEND Ophthalmology
PROC: 08RK3JZ Replacement of Left Lens with Synthetic Substitute, Percutaneous Approach (ICD-10-PCS; principal; 2019-09-07 08:00)
DX: H26.9 Unspecified cataract (principal)
CPT/HCPCS: 82962